=== PATIENT | female | born 1930 | race Caucasian/White ===

== ENCOUNTER 2016-04-05 02:32 | Emergency (ER) | payer OTHER ==
[2016-04-05] MEDS ORDERED: NS 0.9% 1000 ML* 500 ML IV ONE (02:50)
--- NOTE | 2016-04-05 03:06 | ED ---
Tri Preciado Janilya, scribed for Christiano Leonard MD on 04/05/16 at 0303 . GI/ HPI - HPI Summary HPI Summary: A 85 y/o female came in [place] [facility]/o a sudden onset of "unstoppable" diarrhea for the past 2 hrs. Pt reports her stomach was rumbling, and then she had a diarrhea that was completely liquid. She took Imodium with little relief. In addition, pt states she is trembling. PMHx diagnosed as c.diff on February 05. Finished second round of treatment on March 19. - History of Current Complaint Time Seen by Provider: 04/05/16 02:39 Stated Complaint: INFECTION Hx Obtained From: Patient Timing: Constant Severity: Moderate Current Severity: Moderate Associated Signs and Symptoms: Positive: Diarrhea Aggravating Factor(s): Nothing Alleviating Factor(s): Nothing - Allergy/Home Medications Allergies/Adverse Reactions: Allergies Allergy/AdvReac Type Severity Reaction Status Date / Time No Known Allergies Allergy Verified 04/05/16 03:05 PMH/Surg Hx/FS Hx/Imm Hx Previously Healthy: Yes Endocrine/Hematology History: Reports: Hx Thyroid Disease Cardiovascular History: Reports: Hx Hypertension - Family History Family History: Pt does not know any of her FMHx - Social History Hx Tobacco Use: No Review of Systems Positive: Chills. Negative: Fever Positive: Diarrhea All Other Systems Reviewed And Are Negative: Yes Physical Exam Triage Information Reviewed: Yes Vital Signs On Initial Exam: Initial Vitals Temp Pulse Resp BP Pulse Ox 97.3 F 82 16 136/64 99 04/05/16 02:53 04/05/16 02:53 04/05/16 02:53 04/05/16 02:53 04/05/16 02:53 Vital Signs Reviewed: Yes Appearance: Positive: No Pain Distress, Well-Nourished, Thin Skin: Positive: Warm Eyes: Positive: TASIA ENT: Positive: Hearing grossly normal Neck: Positive: Supple Respiratory/Lung Sounds: Positive: Clear to Auscultation, Breath Sounds Present Cardiovascular: Positive: RRR Abdomen Description: Positive: Nontender, Soft Bowel Sounds: Positive: Present Musculoskeletal: Positive: Strength/ROM Intact Psychiatric: Positive: Affect/Mood Appropriate Diagnostics - Vital Signs Vital Signs Temp Pulse Resp BP Pulse Ox 04/05/16 02:53 97.3 F 82 16 136/64 99 - Laboratory Result Diagrams: 04/05/16 04:00 04/05/16 04:55 Diagnostic Studies Comment: c diff positive Lab Statement: Any lab studies that have been ordered have been reviewed, and results considered in the medical decision making process. Re-Evaluation - Re-Evaluation First Eval Re-Evaluation Time: 05:49 - results d/w pt Change: Improved GIGU Course/Dx - Diagnoses Provider Diagnoses: C. difficile diarrhea Discharge - Discharge Plan Condition: Stable Disposition: HOME Prescriptions: Vancomycin CAP* 250 mg PO Q6H #30 cap Patient Education Materials: Clostridium Difficile Infection (ED) Additional Instructions: Follow up with your primary care provider. The documentation as recorded by the Tri patterson Janilya accurately reflects the service I personally performed and the decisions made by , Christiano Leonard MD.
[2016-04-05 04:16] LABS: Hematocrit 42 % (35-47); Hemoglobin 13.6 g/dl (12.0-16.0); Mean Corpuscular HGB Conc 32 g/dl (31-36); Mean Corpuscular Hemoglobin 28 pg (27-31); Mean Corpuscular Volume 86 fL (80-97); Red Blood Count 4.88 10^6/ul (4.0-5.4); Red Cell Distribution Width 17 % (10.5-15); White Blood Count 17.2 10^3/ul (3.5-10.8)
[2016-04-05 04:18] LABS: Comments Flag Yes
[2016-04-05 04:20] LABS: Add Diff/Slide Review? Slide Review Added
[2016-04-05 04:28] LABS: ALT 17 U/L (7-52); Albumin 4.1 g/dL (3.2-5.2); Alkaline Phosphatase 64 U/L (34-104); BUN/Creatinine Ratio 37.5 (8-20); Blood Urea Nitrogen 36 mg/dL (6-24); C Reactive Protein 2.39 mg/L (< 5.00); CO2 Carbon Dioxide 23 mmol/L (22-32); Calcium 9.5 mg/dL (8.6-10.3); Chloride 102 mmol/L (101-111); EGFR African American 71.2 (>60); EGFR Non-African American 55.4 (>60); Globulin 2.6 g/dL (2-4); Glucose 147 mg/dL (70-100); Sodium 135 mmol/L (133-145); Total Protein 6.7 g/dL (6.4-8.9)
[2016-04-05 04:42] LABS: Mean Platelet Volume 9 um3 (7.4-10.4)
[2016-04-05] MEDS ORDERED: Vancomycin CAP* 125 MG CAP PO ONE ×2 (05:34)
[2016-04-05] MEDS ORDERED: Vancomycin CAP* 250 MG CAP PO ONE ×2 (06:00)
[2016-04-05 06:24] VITALS: BP 126/88
== END 2016-04-05 06:24 | disposition home or self-care (01) ==
LOC: ED 02:32
DX: A04.7 Enterocolitis due to Clostridium difficile (principal); R19.7 Diarrhea, unspecified
CPT/HCPCS: 36415; 80053; 83605; 85025; 86140; 87493; 96360; 99284; A9270-GY